=== PATIENT | male | born 1975 ===

== ENCOUNTER 2016-12-01 14:44 | Emergency (ER) | payer SELFPAY ==
[2016-12-01 15:37] VITALS: BP 130/73; RESP 18; TEMP 98.1; O2SAT 99
--- NOTE | 2016-12-01 16:43 | ED PDOC ---
Upper Extremity Pain/Injury Time Seen by Provider: 12/01/16 16:12 Chief Complaint (Nursing): Finger,Hand,&Wrist Chief Complaint (Provider): Left finger injury History Per: Patient History/Exam Limitations: no limitations Onset/Duration Of Symptoms: Hrs Current Symptoms Are (Timing): Still Present Severity: Mild Additional Complaint(s): Patient is a 41 year old right hand dominant male presenting to the ED complaining of left index finger laceration status post dropping a refrigerator on his finger earlier today. Patient reports his finger was stuck between the fridge and the floor. Patient's last tetanus is unknown. Small avulsion laceration with no active bleeding, he is able to digit without limitation. He denies numbness or tingling to affected area. Patient took 2 Aleve prior to arrival which helped with pain. PMD: none Past Medical History Reviewed: Historical Data, Nursing Documentation, Vital Signs Vital Signs: Last Vital Signs Temp 98.1 F 12/01/16 15:34 Pulse 57 L 12/01/16 15:34 Resp 18 12/01/16 15:34 BP 130/73 12/01/16 15:34 Pulse Ox 99 12/01/16 15:34 - Medical History PMH: No Chronic Diseases - Surgical History Surgical History: No Surg Hx - Family History Family History: States: No Known Family Hx - Living Arrangements Living Arrangements: With Family - Social History Current smoker - smoking cessation education provided: Yes Alcohol: None Drugs: Denies - Immunization History Hx Tetanus Toxoid Vaccination: No (not sure of last tetanus) - Allergies Allergies/Adverse Reactions: Allergies Allergy/AdvReac Type Severity Reaction Status Date / Time No Known Allergies Allergy Verified 12/01/16 15:34 Review of Systems ROS Statement: Except As Marked, All Systems Reviewed And Found Negative Constitutional: Negative for: Fever Musculoskeletal: Positive for: Other (crush injury left index finger) Physical Exam - Reviewed Nursing Documentation Reviewed: Yes Vital Signs Reviewed: Yes - Physical Exam Appears: Positive for: Well, Non-toxic, No Acute Distress Skin: Positive for: Normal Color. Negative for: Rash Extremity: Positive for: Normal ROM, Other (1 cm avulsion laceration to the left 2nd digital fingerpad, no active bleeding, no FB, fingernail intact with no subungual hematoma) Neurologic/Psych: Positive for: Alert, Oriented - ECG O2 Sat by Pulse Oximetry: 99 (RA) Pulse Ox Interpretation: Normal - Other Rad Left hand x-ray X-Ray: Interpreted by Me, Viewed By Me X-Ray Interpretation: STS, no fx, no dis, no radiopaque FB Medical Decision Making Medical Decision Making: Time: 16:15 Impression: 41 y/o male with left finger injury Plan: XR left hand Tetanus booster Gel foam dressing Procedure Note: Avulsion laceration to left index finger was cleansed with normal saline and Betadine, Gelfoam applied overlying open wound and secured with gauze wrap, neurovascular intact status post placement. Good bleeding control was achieved. Procedure was tolerated well by patient, no complications. Patient was given wound care instructions. He was advised to continue with Aleve for pain. Advised wound check in 2-3 days. Clinic referral provided. Patient also where he can come back to ED at any time if acutely worse. Scribe Attestation: Documented by Yuan Zacarias acting as a scribe for Therese Jaeger. Provider Attestation: All medical record entries made by the Scribe were at my direction and personally dictated by me. I have reviewed the chart and agree that the record accurately reflects my personal performance of the history, physical exam, medical decision making, and the department course for this patient. I have also personally directed, reviewed, and agree with the discharge instructions and disposition. Disposition - Clinical Impression Clinical Impression: Crush injury to finger, Avulsion of skin of index finger, Requires a booster tetanus - Patient ED Disposition Is Patient to be Admitted: No Counseled Patient/Family Regarding: Studies Performed, Diagnosis, Need For Followup - Disposition Referrals: [facility] [Outside] Disposition: Routine/Home Disposition Time: 16:59 Condition: STABLE Additional Instructions: Keep the bandage in place for 2 days, after 2 days remove bandage and excess foam. Continue with Aleve for pain. Follow-up with clinic in 2-3 days or return any time to ED if acutely worse. Instructions: Skin Avulsion (ED), Diphtheria/Acellular Pertussis/Tetanus Vaccine (DTaP) (By injection), Crush Injury (ED) Forms: [facility] ED School/Work Excuse Print Language: RWANDAN
[2016-12-01] MEDS ORDERED: Absorbable Gelatin Sponge Size 12-7 TP STA (16:51)
[2016-12-01] MEDS ORDERED: TDAP Vaccine 0.5 mL Syr IM ONE (16:51)
--- NOTE | 2016-12-01 17:25 | RAD ---
PROCEDURE: Left Hand Radiographs. HISTORY: Trauma. Attention 2nd digit. COMPARISON: None. FINDINGS: BONES: Normal. No fracture. JOINTS: Normal. No osteoarthritic changes. SOFT TISSUES: 2nd digit, distal interphalangeal joint region: Soft tissue swelling without adjacent osseous abnormality. OTHER FINDINGS: None. IMPRESSION: Soft tissue swelling without acute articular or osseous abnormality. Concordant results with the preliminary interpretation rendered by the emergency department physician procedure.
[2016-12-01] MEDS ORDERED: Absorbable Gelatin Sponge Size 12-7 ONE (17:37)
[2016-12-01 18:26] VITALS: PULSE 61
== END 2016-12-01 18:18 | disposition home or self-care (01) ==
LOC: H.ER 14:44
DX: Z71.6 Tobacco abuse counseling (principal); W23.0XXA Caught, crushed, jammed, or pinched between moving objects, initial encounter; Y93.E9 Activity, other interior property and clothing maintenance; Y92.9 Unspecified place or not applicable; Y99.9 Unspecified external cause status